=== PATIENT | female | born 1935 | race Caucasian/White ===

== ENCOUNTER 2024-04-19 22:15 | Emergency (ER) | payer MEDICARE, OTHER | END 2024-04-20 00:51 | disposition home or self-care (01) | LOC: ERS 22:15 | DX: S50.01XA Contusion of right elbow, initial encounter (principal); Z55.6 Problems related to health literacy; W01.0XXA Fall on same level from slipping, tripping and stumbling without subsequent striking against object, initial encounter | CPT/HCPCS: 70450; 72125 ==